=== PATIENT | female | born 1965 | race African-American/Black ===

== ENCOUNTER 2016-12-30 14:06 | Inpatient (IN) | payer BC ==
[~2016-12-30] VITALS: Ht 167.6 cm; Wt 97.6 kg
[~2016-12-30 14:06] MED LIST: AMLO1TAB39 PO; AMLO2.5T45 PO; FERR-63 PO; IBUP-1509 PO; LEVO25TA54 PO; RIVA10TA PO; RIVA20TA PO; SOTA80TA PO
[2016-12-30] MEDS ORDERED: DILTIAZEM HCL 5MG/ML 5ML VIAL IV ONE (18:15)
[2016-12-30] MEDS ORDERED: LORAZEPAM 2MG/ML CPJ IV ONE (18:15)
[2016-12-30] MEDS ORDERED: SODIUM CHLORIDE 0.9% 1,000 ML IV ONE (18:15)
[2016-12-30] MEDS ORDERED: DILTIAZEM HCL 125 MG in DEXT 5% WATER 100 ML IV NR ×4 (21:00)
[2016-12-30 21:05] LABS: CHLORIDE 105 mEq/L (98-107)
[2016-12-30 21:06] LABS: BASOPHILS % 0.4 % (0.0-2.0); EOSINOPHILS % 1.3 % (0.0-5.0); HEMATOCRIT. 45.6 % (36.0-48.0); HEMOGLOBIN. 15.2 g/dL (12.0-16.0); LYMPHOCYTES % 26.9 % (20.0-50.0); MEAN CORPUSCULAR HEMOGLOBIN 28.1 pg (28.0-32.0); MEAN CORPUSCULAR VOLUME 84.5 fL (81.0-99.0); MEAN PLATELET VOLUME 7.7 fl (7.4-10.4); MONOCYTES % 6.5 % (2.0-8.0); NEUTROPHILS % 64.9 % (40.0-76.0); PLATELET 248 x1000/uL (130-400); RED BLOOD CELL COUNT 5.39 mill/uL (4.2-5.4); RED CELL DISTRIBUTION WIDTH 14.1 % (11.6-14.6)
[2016-12-30 21:09] LABS: INR 1.2; PARTIAL THROMBOPLASTIN TIME 32.8 sec (24.0-34.0)
[2016-12-30 21:14] LABS: CARBON DIOXIDE 27 mEq/L (21-32)
[2016-12-30 21:16] LABS: TROPONIN I < 0.02 ng/mL (0.00-0.04)
[2016-12-30 22:55] VITALS: BP 140/72
[2016-12-30 22:59] VITALS: BP 140/72
[2016-12-30] MEDS ORDERED: LORA1TAB PO (23:15)
[2016-12-31] VITALS (19 sets, daily range): BP systolic 95–136; BP diastolic 60–89
[2016-12-31] MEDS ORDERED: DIPHENHYDRAMINE 50MG CAPSULE PO PRN (00:45)
[2016-12-31] MEDS ORDERED: ACETAMINOPHEN 325MG TABLET PO PRN (00:45)
[2016-12-31 06:16] LABS: BASOPHILS % 0.4 % (0.0-2.0); EOSINOPHILS % 1.6 % (0.0-5.0); HEMATOCRIT. 43.5 % (36.0-48.0); HEMOGLOBIN. 14.5 g/dL (12.0-16.0); LYMPHOCYTES % 33.4 % (20.0-50.0); MEAN CORPUSCULAR HEMOGLOBIN 28.6 pg (28.0-32.0); MEAN CORPUSCULAR VOLUME 85.9 fL (81.0-99.0); MEAN PLATELET VOLUME 7.7 fl (7.4-10.4); MONOCYTES % 7.9 % (2.0-8.0); NEUTROPHILS % 56.7 % (40.0-76.0); PLATELET 252 x1000/uL (130-400); RED BLOOD CELL COUNT 5.07 mill/uL (4.2-5.4); RED CELL DISTRIBUTION WIDTH 14.1 % (11.6-14.6)
[2016-12-31] MEDS: DILTIAZEM HCL 30MG TABLET PO SCH ×2 (06:20→12:00)
[2016-12-31 07:22] LABS: CARBON DIOXIDE 27 mEq/L (21-32); CHLORIDE 106 mEq/L (98-107)
[2016-12-31] MEDS: FAMOTIDINE 20MG TABLET PO SCH ×2 (08:24→17:00)
[2016-12-31] MEDS ORDERED: RIVAROXABAN 20 MG TABLET PO SCH (09:00)
[2016-12-31] MEDS ORDERED: SOTALOL HCL 80MG TABLET PO SCH (09:00)
== END 2016-12-31 17:20 | disposition home or self-care (01) | DRG 310 ==
LOC: ER 14:49 → 3WST 21:10 → ENRESERV 21:19 → CANRESERV 21:19 → EDBEDREQSVC 21:34 → ENRESERV 21:38
PROVIDERS: ADMIT Internal Medicine; ATTEND Internal Medicine
DX: I48.91 Unspecified atrial fibrillation (principal); R07.89 Other chest pain; I47.1 Supraventricular tachycardia; I10 Essential (primary) hypertension; E03.9 Hypothyroidism, unspecified; F41.9 Anxiety disorder, unspecified; Z79.01 Long term (current) use of anticoagulants; Z79.899 Other long term (current) drug therapy; Z72.89 Other problems related to lifestyle
CPT/HCPCS: 36415; 71010; 80048; 80053; 84443; 84484; 85025; 85610; 85730; 93005; 96361; 96365; 96375; 96376; 99291; J2060; J3490; J7030; J7060

== ENCOUNTER 2017-02-27 21:39 | Inpatient (IN) | payer BC ==
[~2017-02-27] VITALS: Ht 167.6 cm; Wt 99.8 kg
[~2017-02-27 21:39] MED LIST changes: -AMLO1TAB39 PO; -IBUP-1509 PO; +IBUP-2028 PO; +LEVO25TA2 PO; -LEVO25TA54 PO; +LORA1TAB PO; -RIVA10TA PO
[2017-02-27 23:10] LABS: BASOPHILS % 0.4 % (0.0-2.0); EOSINOPHILS % 1.9 % (0.0-5.0); HEMATOCRIT. 43.2 % (36.0-48.0); HEMOGLOBIN. 14.6 g/dL (12.0-16.0); LYMPHOCYTES % 28.1 % (20.0-50.0); MEAN CORPUSCULAR HEMOGLOBIN 28.9 pg (28.0-32.0); MEAN CORPUSCULAR VOLUME 85.6 fL (81.0-99.0); MEAN PLATELET VOLUME 7.4 fl (7.4-10.4); MONOCYTES % 5.5 % (2.0-8.0); NEUTROPHILS % 64.1 % (40.0-76.0); PLATELET 258 x1000/uL (130-400); RED BLOOD CELL COUNT 5.05 mill/uL (4.2-5.4); RED CELL DISTRIBUTION WIDTH 14.6 % (11.6-14.6)
[2017-02-27 23:18] LABS: CHLORIDE 106 mEq/L (98-107)
[2017-02-27 23:19] LABS: INR 1.2; PROTHROMBIN TIME 12.6 sec (9.4-11.6)
[2017-02-27 23:26] LABS: CARBON DIOXIDE 26 mEq/L (21-32)
[2017-02-27 23:27] LABS: TROPONIN I < 0.02 ng/mL (0.00-0.04)
[2017-02-28] VITALS (8 sets, daily range): BP systolic 109–147; BP diastolic 71–93
[2017-02-28] MEDS ORDERED: ACET-2708 PO (03:38)
[2017-02-28] MEDS ORDERED: SOTA80TA PO (03:38)
[2017-02-28] MEDS ORDERED: LORAZEPAM 1MG TABLET PO PRN (03:45)
[2017-02-28] MEDS ORDERED: ACETAMINOPHEN 500MG TABLET PO SCH (03:45)
[2017-02-28] MEDS ORDERED: ACETAMINOPHEN 325MG TABLET PO PRN (03:45)
[2017-02-28] MEDS: SOTALOL HCL 80MG TABLET PO SCH (06:26)
[2017-02-28 08:04] LABS: CREATINE KINASE 118 IU/L (26-192); CREATINE KINASE MB FRACTION 0.9 ng/mL (0.5-3.6); TROPONIN I < 0.02 ng/mL (0.00-0.04)
[2017-02-28] MEDS: FERROUS SULFATE 325MG TABLET PO SCH (08:46)
[2017-02-28] MEDS: AMLODIPINE 2.5MG TABLET PO SCH ×2 (08:46→21:13)
[2017-02-28] MEDS ORDERED: RIVAROXABAN 20 MG TABLET PO SCH ×2 (09:00→17:00)
[2017-02-28] MEDS ORDERED: SOTALOL HCL 80MG TABLET PO SCH (09:00)
[2017-02-28 17:49] LABS: CREATINE KINASE 101 IU/L (26-192); CREATINE KINASE MB FRACTION < 0.5 ng/mL (0.5-3.6); TROPONIN I < 0.02 ng/mL (0.00-0.04)
[2017-02-28] MEDS ORDERED: SOTALOL HCL 120MG TABLET PO SCH ×2 (18:00→21:00)
[2017-03-01] VITALS: BP 106/70
[2017-03-01 05:00] VITALS: BP 108/66
[2017-03-01] MEDS: SOTALOL HCL 80MG TABLET PO SCH (05:39)
[2017-03-01 08:00] VITALS: BP 136/85
[2017-03-01] MEDS: AMLODIPINE 2.5MG TABLET PO SCH (09:24)
[2017-03-01] MEDS: FERROUS SULFATE 325MG TABLET PO SCH (09:24)
[2017-03-01 12:11] VITALS: BP 165/93
[2017-03-01 14:06] VITALS: BP 163/93
== END 2017-03-01 14:30 | disposition home or self-care (01) | DRG 206 ==
LOC: ER 21:39 → 5WST 02-28 00:08 → EDBEDREQTM 02-28 00:09 → EDBEDREQ 02-28 00:09 → ENRESERV 02-28 01:46
PROVIDERS: ADMIT Internal Medicine; ATTEND Internal Medicine
DX: M94.0 Chondrocostal junction syndrome [Tietze] (principal); I10 Essential (primary) hypertension; E11.9 Type 2 diabetes mellitus without complications; F41.9 Anxiety disorder, unspecified; I48.0 Paroxysmal atrial fibrillation; I48.2 Chronic atrial fibrillation; R00.1 Bradycardia, unspecified; Z79.01 Long term (current) use of anticoagulants; Z82.49 Family history of ischemic heart disease and other diseases of the circulatory system; Z79.899 Other long term (current) drug therapy; Z72.89 Other problems related to lifestyle
CPT/HCPCS: 36415; 71010; 80053; 80061; 82550; 82553; 83036; 83690; 83880; 84443; 84484; 85025; 85610; 85730; 93005; 93306; 99285

== ENCOUNTER 2019-12-14 20:16 | Inpatient (IN) | payer BC ==
[~2019-12-14] VITALS: Ht 172.7 cm; Wt 87.0 kg
[~2019-12-14 20:16] MED LIST changes: +ACET-2708 PO; -IBUP-2028 PO; -LEVO25TA2 PO; -SOTA80TA PO
[2019-12-14] MEDS ORDERED: NITROGLYCERIN 0.4MG TABLET SL SL PRN (22:15)
[2019-12-14 23:02] LABS: BASOPHILS % 0.3 % (0.0-2.0); EOSINOPHILS % 1.1 % (0.0-5.0); HEMATOCRIT. 44.7 % (36.0-48.0); HEMOGLOBIN. 15.3 g/dL (12.0-16.0); LYMPHOCYTES % 28.4 % (20.0-50.0); MEAN CORPUSCULAR HEMOGLOBIN 29.9 pg (28.0-32.0); MEAN CORPUSCULAR VOLUME 87.5 fL (81.0-99.0); MEAN PLATELET VOLUME 7.3 fl (7.4-10.4); MONOCYTES % 5.6 % (2.0-8.0); NEUTROPHILS % 64.6 % (40.0-76.0); PLATELET 235 x1000/uL (130-400); RED BLOOD CELL COUNT 5.11 mill/uL (4.2-5.4); RED CELL DISTRIBUTION WIDTH 14.2 % (11.6-14.6)
[2019-12-14 23:08] LABS: CHLORIDE 108 mEq/L (98-107)
[2019-12-14 23:15] LABS: D-DIMER < 0.19 mg/L FEU (<0.50); INR 1.4; PARTIAL THROMBOPLASTIN TIME 41.4 sec (23.4-31.0); PROTHROMBIN TIME 14.3 sec (9.6-11.0)
[2019-12-14] MEDS ORDERED: LEVOFLOXACIN 750MG PREMIX 150 ML IV ONE (23:45)
[2019-12-15 02:02] LABS: CLARITY URINE CLEAR (CLEAR); COLOR URINE YELLOW (YELLOW); KETONES URINE NEGATIVE (NEGATIVE); LEUKOCYTE ESTERASE URINE TRACE (NEGATIVE); NITRITE URINE NEGATIVE (NEGATIVE); OCCULT BLOOD URINE TRACE (NEGATIVE); PH URINE 6.5 (4.5-8.0); PROTEIN URINE NEGATIVE (NEGATIVE); SPECIFIC GRAVITY URINE 1.014 (1.005-1.030); UROBILINOGEN URINE 0.2 E.U./dL (0.2-1.0)
[2019-12-15] MEDS ORDERED: LORAZEPAM 1MG TABLET PO PRN (11:15)
[2019-12-15] MEDS ORDERED: METOPROLOL TARTRATE 50MG TABLET PO NR (11:15)
[2019-12-15] MEDS ORDERED: ASPIRIN 81MG TABLET PO NR (12:45)
[2019-12-15] MEDS: AMLODIPINE 2.5MG TABLET PO SCH ×2 (13:30→17:31)
[2019-12-15] MEDS ORDERED: ACETAMINOPHEN 325MG TABLET PO PRN (14:30)
[2019-12-15] MEDS ORDERED: ACETAMINOPHEN 650MG SUPP PR PRN (14:30)
[2019-12-15] MEDS ORDERED: CLONIDINE 0.1MG TABLET PO PRN (14:30)
[2019-12-15] MEDS ORDERED: GUAIFENESIN 200MG/10ML SUGAR FREE UDC PO PRN (14:30)
[2019-12-15] MEDS ORDERED: LORAZEPAM 0.5MG TABLET PO PRN (14:30)
[2019-12-15] MEDS ORDERED: DIPHENHYDRAMINE 50MG/ML VIAL IV PRN (14:30)
[2019-12-15] MEDS ORDERED: IPRATROPIUM/ALBUTEROL 0.5-3(2.5)MG/3ML NEB NEB PRN (14:30)
[2019-12-15] MEDS ORDERED: DOCUSATE SODIUM 100MG CAPSULE PO PRN (14:30)
[2019-12-15] MEDS ORDERED: NA PHOS,M-B/NA PHOS,DI-BA ENEMA 118ML PR PRN (14:30)
[2019-12-15] MEDS ORDERED: ONDANSETRON HCL 4MG/2ML INJ IV PRN (14:30)
[2019-12-15] MEDS ORDERED: HYDROCODONE/ACETAMINOPHEN 5/325MG TABLET PO PRN (14:30)
[2019-12-15] MEDS ORDERED: MAGNESIUM/ALUMINUM HYDROXIDE/SIMETHICONE 30ML UDC PO PRN (14:30)
[2019-12-15] MEDS: FAMOTIDINE 20MG/2ML VIAL IV SCH (14:50)
[2019-12-15] MEDS ORDERED: CEFTRIAXONE 1 G PREMIX 50 ML IV SCH (15:00)
[2019-12-15 16:57] LABS: HEMATOCRIT 45.6 % (36.0-48.0); HEMOGLOBIN 15.3 g/dL (12.0-16.0); MEAN CORPUSCULAR HEMOGLOBIN 29.8 pg (28.0-32.0); MEAN CORPUSCULAR VOLUME 88.6 fL (81.0-99.0); PLATELET 253 x1000/uL (130-400); RED BLOOD CELL COUNT 5.15 mill/uL (4.2-5.4); RED CELL DISTRIBUTION WIDTH 14.4 % (11.6-14.6)
[2019-12-15 17:00] LABS: CHLORIDE 109 mEq/L (98-107)
[2019-12-15] MEDS ORDERED: RIVAROXABAN 20 MG TABLET PO SCH (17:00)
[2019-12-15] MEDS ORDERED: REGADENOSON 0.4 MG/5 ML IV ONE (20:15)
[2019-12-15] MEDS ORDERED: SOTALOL HCL 80MG TABLET PO SCH (21:00)
[2019-12-15] MEDS ORDERED: POTASSIUM CHLORIDE 20MEQ TABLET SR PO ONE (22:31)
[2019-12-16] MEDS ORDERED: DEXT 5%/0.45% NACL 1000ML 1,000 ML IV SCH
[2019-12-16 00:27] LABS: CREATINE KINASE 114 IU/L (26-192)
[2019-12-16 00:28] LABS: CREATINE KINASE MB FRACTION < 1.0 ng/mL (0.5-3.6)
[2019-12-16] MEDS ORDERED: POTASSIUM CHLORIDE 20MEQ TABLET SR PO NR (02:45)
[2019-12-16 05:17] LABS: BASOPHILS % 0.5 % (0.0-2.0); EOSINOPHILS % 1.2 % (0.0-5.0); HEMATOCRIT. 46.7 % (36.0-48.0); HEMOGLOBIN. 15.7 g/dL (12.0-16.0); LYMPHOCYTES % 35.6 % (20.0-50.0); MEAN CORPUSCULAR HEMOGLOBIN 29.6 pg (28.0-32.0); MEAN CORPUSCULAR VOLUME 88.1 fL (81.0-99.0); MEAN PLATELET VOLUME 7.5 fl (7.4-10.4); MONOCYTES % 9.5 % (2.0-8.0); NEUTROPHILS % 53.2 % (40.0-76.0); PLATELET 245 x1000/uL (130-400); RED CELL DISTRIBUTION WIDTH 14.2 % (11.6-14.6)
[2019-12-16 05:25] LABS: CHLORIDE 109 mEq/L (98-107)
[2019-12-16 05:33] LABS: LDL CHOLESTEROL 169 mg/dL (5-100)
[2019-12-16 05:34] LABS: CREATINE KINASE 93 IU/L (26-192); HDL CHOLESTEROL 53 mg/dL (40-59)
[2019-12-16 05:35] LABS: CREATINE KINASE MB FRACTION < 1.0 ng/mL (0.5-3.6)
[2019-12-16] MEDS ORDERED: ASPIRIN 81MG EC TABLET PO SCH (09:00)
[2019-12-16] MEDS: AMLODIPINE 2.5MG TABLET PO SCH (09:00)
[2019-12-16] MEDS: FAMOTIDINE 20MG/2ML VIAL IV SCH (09:00)
[2019-12-16 10:55] LABS: *BENZODIAZEPINES SCREEN URINE NEGATIVE (NEGATIVE); *COCAINE SCREEN URINE NEGATIVE (NEGATIVE); METHADONE URINE SCREEN NEGATIVE (NEGATIVE)
[2019-12-16 10:56] LABS: *AMPHETAMINES SCREEN URINE NEGATIVE (NEGATIVE); *BARBITURATES SCREEN URINE NEGATIVE (NEGATIVE); CANNABINOID URINE SCREEN NEGATIVE (NEGATIVE); OPIATES URINE SCREEN NEGATIVE (NEGATIVE); PHENCYCLIDINE URINE SCREEN NEGATIVE (NEGATIVE)
[2019-12-16] MEDS ORDERED: REGADENOSON 0.4 MG/5 ML IV ONE (11:12)
[2019-12-16 14:38] VITALS: BP 144/86
[2019-12-16] MEDS ORDERED: SOTALOL HCL 80MG TABLET PO NR (14:45)
== END 2019-12-16 16:30 | disposition home or self-care (01) | DRG 690 ==
LOC: ER 20:16 → MICUSO 23:51 → EDBEDREQ 23:53 → EDBEDREQTM 23:53 → SUPCPDRO 12-15 10:55 → MICUSO 12-16 08:07
PROVIDERS: ADMIT Internal Medicine; ATTEND Internal Medicine
DX: N39.0 Urinary tract infection, site not specified (principal); I48.21 Permanent atrial fibrillation; D68.59 Other primary thrombophilia; E86.0 Dehydration; R73.9 Hyperglycemia, unspecified; R07.9 Chest pain, unspecified; J06.9 Acute upper respiratory infection, unspecified; I10 Essential (primary) hypertension; Z82.49 Family history of ischemic heart disease and other diseases of the circulatory system; Z79.01 Long term (current) use of anticoagulants; Z91.09 Other allergy status, other than to drugs and biological substances; Z79.899 Other long term (current) drug therapy; Z03.818 Encounter for observation for suspected exposure to other biological agents ruled out
CPT/HCPCS: 36415; 71045; 78452; 80048; 80053; 80061; 80305; 81003; 82550; 82553; 83036; 83605; 83880; 84481; 84484; 85025; 85027; 85379; 93005; 93017; 93880; 96365; 96366; 96367; 96375; 99285; A9500; J0696; J1956; J2785; J3490; C9803-CS; U0003-CS

== ENCOUNTER 2023-11-10 19:06 | Emergency (ER) | payer OTHER ==
[~2023-11-10] VITALS: Ht 167.6 cm; Wt 108.0 kg
[2023-11-10 19:23] VITALS: TEMP 98.6; O2SAT 99
[2023-11-10] MEDS: CLONIDINE 0.1MG TABLET PO ONE (21:15)
[2023-11-10 22:30] VITALS: BP 182/114; PULSE 106; RESP 16
[2023-11-10] MEDS: HYDROCODONE/ACETAMINOPHEN 10/325MG TABLET PO ONE (22:30)
[2023-11-10 23:06] LABS: BASOPHILS % 0.5 % (0.0-2.0); EOSINOPHILS % 0.9 % (0.0-5.0); HEMATOCRIT. 38.8 % (36.0-48.0); HEMOGLOBIN. 13.1 g/dL (12.0-16.0); LYMPHOCYTES % 41.3 % (20.0-50.0); MEAN CORPUSCULAR HEMOGLOBIN 30.8 pg (28.0-32.0); MEAN CORPUSCULAR HGB CONC 33.7 g/dL (31.0-37.0); MEAN CORPUSCULAR VOLUME 91.5 fL (81.0-99.0); MEAN PLATELET VOLUME 6.8 fl (7.4-10.4); MONOCYTES % 9.3 % (2.0-8.0); PLATELET 316 x1000/uL (130-400); RED BLOOD CELL COUNT 4.24 mill/uL (4.2-5.4); RED CELL DISTRIBUTION WIDTH 15.1 % (11.6-14.6); WHITE BLOOD COUNT 3.9 x1000/uL (4.5-11.0)
[2023-11-10 23:12] LABS: CHLORIDE 105 mEq/L (98-107); POTASSIUM 3.8 mEq/L (3.5-5.1); SODIUM 139 mEq/L (136-145)
[2023-11-10 23:13] LABS: CALCIUM 10.3 mg/dL (8.7-10.4); CARBON DIOXIDE 27 mEq/L (21-32)
[2023-11-10 23:18] LABS: CREATININE 0.7 mg/dL (0.6-1.0); GLUCOSE 138 mg/dL (70-105); TROPONIN I HIGH SENSITIVITY 5 ng/L (3.0-34); UREA NITROGEN BLOOD 5 mg/dL (9-23)
[2023-11-11] MEDS: ONDANSETRON 4MG ODT PO NR (01:00)
== END 2023-11-11 07:20 | disposition home or self-care (01) ==
LOC: ER 19:06
DX: H43.393 Other vitreous opacities, bilateral (principal); I10 Essential (primary) hypertension; I48.91 Unspecified atrial fibrillation; Z98.890 Other specified postprocedural states
CPT/HCPCS: 36415; 80048; 84484; 85025; 93005; 99284

== ENCOUNTER 2024-03-05 19:24 | Inpatient (IN) | payer OTHER ==
[~2024-03-05] VITALS: Ht 167.6 cm; Wt 114.3 kg
[2024-03-05 20:52] LABS: HEMATOCRIT. 40.3 % (36.0-48.0); HEMOGLOBIN. 13.3 g/dL (12.0-16.0); MEAN CORPUSCULAR HEMOGLOBIN 28.9 pg (28.0-32.0); MEAN CORPUSCULAR HGB CONC 32.9 g/dL (31.0-37.0); MEAN CORPUSCULAR VOLUME 87.7 fL (81.0-99.0); MEAN PLATELET VOLUME 7.4 fl (7.4-10.4); PLATELET 281 x1000/uL (130-400); RED BLOOD CELL COUNT 4.59 mill/uL (4.2-5.4); RED CELL DISTRIBUTION WIDTH 14.4 % (11.6-14.6); WHITE BLOOD COUNT 2.6 x1000/uL (4.5-11.0)
[2024-03-05 20:53] LABS: DIFFERENTIAL COMMENT 1
[2024-03-05 20:58] LABS: CHLORIDE 101 mEq/L (98-107); POTASSIUM 4.3 mEq/L (3.5-5.1); SODIUM 137 mEq/L (136-145)
[2024-03-05 20:59] LABS: CARBON DIOXIDE 29 mEq/L (21-32)
[2024-03-05 21:00] LABS: CALCIUM 10.1 mg/dL (8.7-10.4)
[2024-03-05 21:04] LABS: GLUCOSE 380 mg/dL (70-105); UREA NITROGEN BLOOD 11 mg/dL (9-23)
[2024-03-05 21:07] LABS: PROTHROMBIN TIME 11.5 sec (9.6-11.0)
[2024-03-05 21:08] LABS: TROPONIN I HIGH SENSITIVITY 43 ng/L (3.0-34)
[2024-03-05 21:29] LABS: PLATELET ESTIMATE NORMAL
[2024-03-05 21:48] LABS: CLARITY URINE CLEAR (CLEAR); COLOR URINE YELLOW (YELLOW); GLUCOSE URINE 3+ (NEGATIVE); KETONES URINE NEGATIVE (NEGATIVE); LEUKOCYTE ESTERASE URINE NEGATIVE (NEGATIVE); NITRITE URINE NEGATIVE (NEGATIVE); OCCULT BLOOD URINE NEGATIVE (NEGATIVE); PH URINE 6.5 (4.5-8.0); PROTEIN URINE NEGATIVE (NEGATIVE); UROBILINOGEN URINE 0.2 E.U./dL (0.2-1.0)
[2024-03-05 22:22] LABS: BACTERIA URINE NONE SEEN; RBC URINE NONE SEEN /hpf (0-2); SQUAMOUS EPITHELIAL CELL URINE RARE /lpf (RARE/1+); WBC URINE NONE SEEN /hpf (0-2)
[2024-03-05] MEDS: ASPIRIN 325MG EC TABLET PO ONE (23:12)
[2024-03-06] MEDS: CLONIDINE 0.1MG TABLET PO NR (01:29)
[2024-03-06] MEDS: HYDRALAZINE 20MG/ML VIAL IV PRN (10:47)
[2024-03-06] MEDS ORDERED: CLONIDINE 0.1MG TABLET PO PRN (14:30)
[2024-03-06] MEDS ORDERED: ONDANSETRON HCL 4MG/2ML INJ IV PRN (14:30)
[2024-03-06] MEDS: LOSARTAN 25 MG TABLET PO SCH (15:00)
[2024-03-06] MEDS: AMLODIPINE 2.5MG TABLET PO SCH (15:00)
[2024-03-06] MEDS: ISOSORBIDE MONONITRATE 30MG TABLET SR 24HR PO SCH (16:32)
[2024-03-06 17:30] VITALS: BP_SYST 160; BP_SYST 162; BP_DIAS 81; BP_DIAS 82; PULSE 92; RESP 18; RESP 20; TEMP 36.6696; TEMP 36.7516; O2SAT 99
[2024-03-06] MEDS: RIVAROXABAN 20 MG TABLET PO SCH (18:11)
[2024-03-06 18:25] LABS: TROPONIN I HIGH SENSITIVITY 46 ng/L (3.0-34)
[2024-03-06] MEDS ORDERED: DEXTROSE 50% WATER 50ML SYRINGE IV PRN (18:30)
[2024-03-06] MEDS: INSULIN LISPRO 100 UNITS/ML SUBCUT SCH (18:40)
[2024-03-06] MEDS: ACETAMINOPHEN 500MG TABLET PO SCH (19:33)
[2024-03-06 20:15] VITALS: BP 189/99; PULSE 98; RESP 19; TEMP 36.89184; O2SAT 97
[2024-03-06 20:18] VITALS: BP 166/92; PULSE 97; RESP 17; O2SAT 98
[2024-03-06] MEDS: BLOOD SUGAR DIAGNOSTIC STRIP TEST SCH (21:00)
[2024-03-06] MEDS ORDERED: OMEPRAZOLE 20MG CAPSULE EXTENDED RELEASE PO SCH (21:00)
[2024-03-06 21:15] VITALS: BP 152/85; PULSE 92; RESP 20; O2SAT 98
[2024-03-06 22:00] VITALS: BP 136/83; PULSE 91; RESP 10; O2SAT 98
[2024-03-06] MEDS: SODIUM CHLORIDE 0.9% 3ML FLUSH IVF SCH (22:30)
[2024-03-06] MEDS ORDERED: NALOXONE HCL 0.4MG/ML VIAL IV PRN (23:00)
[2024-03-06] MEDS: HYDROCODONE/ACETAMINOPHEN 5/325MG TABLET PO PRN (23:05)
[2024-03-07] VITALS (11 sets, daily range): BP systolic 109–137; BP diastolic 62–87; PULSE 76–91; RESP 11–20; TEMP 36.6696–36.83628; O2SAT 97–99
[2024-03-07] MEDS ORDERED: PANTOPRAZOLE 40MG DR TABLET PO SCH (06:45)
[2024-03-07 07:28] LABS: CHLORIDE 103 mEq/L (98-107); POTASSIUM 3.8 mEq/L (3.5-5.1); SODIUM 136 mEq/L (136-145)
[2024-03-07 07:29] LABS: CARBON DIOXIDE 25 mEq/L (21-32)
[2024-03-07 07:30] LABS: CALCIUM 9.8 mg/dL (8.7-10.4)
[2024-03-07 07:34] LABS: CREATININE 0.8 mg/dL (0.6-1.0); GLUCOSE 312 mg/dL (70-105); UREA NITROGEN BLOOD 11 mg/dL (9-23)
[2024-03-07 08:05] LABS: HEMATOCRIT. 38.2 % (36.0-48.0); HEMOGLOBIN. 12.4 g/dL (12.0-16.0); MEAN CORPUSCULAR HEMOGLOBIN 28.6 pg (28.0-32.0); MEAN CORPUSCULAR HGB CONC 32.5 g/dL (31.0-37.0); MEAN PLATELET VOLUME 7.8 fl (7.4-10.4); PLATELET 285 x1000/uL (130-400); RED BLOOD CELL COUNT 4.34 mill/uL (4.2-5.4); RED CELL DISTRIBUTION WIDTH 14.1 % (11.6-14.6); WHITE BLOOD COUNT 3.9 x1000/uL (4.5-11.0)
[2024-03-07 08:21] LABS: DIFFERENTIAL COMMENT 1
[2024-03-07] MEDS ORDERED: VERAPAMIL HCL 2.5 MG/1 ML 2ML VIAL IV ONE (10:06)
[2024-03-07] MEDS ORDERED: LIDOCAINE HCL 1% 10 MG/ML 10ML VIAL ONE ×2 (10:06→10:30)
[2024-03-07] MEDS ORDERED: DIPHENHYDRAMINE 50MG/ML VIAL ONE (10:06)
[2024-03-07] MEDS ORDERED: HEPARIN 1000 UNITS/ML 10ML ONE (10:07)
[2024-03-07] MEDS ORDERED: IODIXANOL 320MG/ML 100 ML BOTTLE IV ONE (10:07)
[2024-03-07] MEDS ORDERED: ACETAMINOPHEN 500MG TABLET PO SCH (10:30)
[2024-03-07] MEDS: INSULIN GLARGINE 100 UNITS/ML SUBCUT SCH (10:40)
[2024-03-07] MEDS: ACETAMINOPHEN 500MG TABLET PO PRN (10:43)
[2024-03-07] MEDS ORDERED: REGADENOSON 0.4 MG/5 ML IV NR (13:45)
[2024-03-07 19:33] LABS: PLATELET ESTIMATE NORMAL
[2024-03-07] MEDS: LIDOCAINE 5% PATCH TOP SCH (20:19)
[2024-03-08] VITALS: BP 125/70; PULSE 78; RESP 18; TEMP 36.55848; O2SAT 100
[2024-03-08 04:00] VITALS: BP 130/88; PULSE 80; RESP 20; TEMP 36.78072; O2SAT 99
[2024-03-08 06:52] LABS: CHLORIDE 103 mEq/L (98-107); POTASSIUM 3.9 mEq/L (3.5-5.1); SODIUM 137 mEq/L (136-145)
[2024-03-08 06:53] LABS: CARBON DIOXIDE 26 mEq/L (21-32)
[2024-03-08 06:54] LABS: CALCIUM 9.9 mg/dL (8.7-10.4)
[2024-03-08 06:56] LABS: HEMATOCRIT 38.1 % (36.0-48.0); HEMOGLOBIN 12.4 g/dL (12.0-16.0); MEAN CORPUSCULAR HEMOGLOBIN 28.8 pg (28.0-32.0); MEAN CORPUSCULAR HGB CONC 32.6 g/dL (31.0-37.0); MEAN CORPUSCULAR VOLUME 88.2 fL (81.0-99.0); PLATELET 301 x1000/uL (130-400); RED BLOOD CELL COUNT 4.32 mill/uL (4.2-5.4); RED CELL DISTRIBUTION WIDTH 14.5 % (11.6-14.6); WHITE BLOOD COUNT 3.6 x1000/uL (4.5-11.0)
[2024-03-08 06:58] LABS: CREATININE 0.8 mg/dL (0.6-1.0); GLUCOSE 247 mg/dL (70-105)
[2024-03-08 06:59] LABS: UREA NITROGEN BLOOD 9 mg/dL (9-23)
[2024-03-08 08:00] VITALS: BP 110/85; PULSE 85; RESP 19; TEMP 36.78072; O2SAT 95
[2024-03-08] MEDS ORDERED: REGADENOSON 0.4 MG/5 ML IV ONE (10:47)
[2024-03-08 16:00] VITALS: BP 147/92; PULSE 98; RESP 22; TEMP 37.00296; O2SAT 99
[2024-03-08] MEDS ORDERED: LOSA25TA26 MT (18:25)
[2024-03-08] MEDS ORDERED: INSHUMSS SUBCUT (18:25)
[2024-03-08] MEDS ORDERED: ISOS30TA91 PO (18:25)
[2024-03-08] MEDS ORDERED: METF-416 PO (18:34)
[2024-03-08 19:41] VITALS: BP 134/89; PULSE 107; RESP 23; TEMP 36.83628; O2SAT 98
[2024-03-08 19:58] VITALS: BP 134/90; PULSE 101; TEMP 98.4; O2SAT 98
[2024-03-09] MEDS ORDERED: INSULIN GLARGINE 100 UNITS/ML SUBCUT SCH (10:00)
[2024-03-11] MEDS ORDERED: INSHUMSS SUBCUT (12:25)
== END 2024-03-08 21:25 | disposition home or self-care (01) | DRG 281 ==
LOC: ER 19:24 → 5WST 23:11 → 3WST 03-06 17:14
PROVIDERS: ADMIT Internal Medicine; ATTEND Internal Medicine
DX: I21.4 Non-ST elevation (NSTEMI) myocardial infarction (principal); I48.20 Chronic atrial fibrillation, unspecified; I16.0 Hypertensive urgency; R73.9 Hyperglycemia, unspecified; I10 Essential (primary) hypertension; Z85.3 Personal history of malignant neoplasm of breast; Z95.828 Presence of other vascular implants and grafts
CPT/HCPCS: 36415; 71045; 78452; 80048; 81003; 82962; 83036; 83880; 84484; 85025; 85027; 93005; 93017; 93306; 99285; A9500; J0360; J1200; J1644; J1815; J2785; J3490; Q9967